=== PATIENT | female | born 1930 | race Caucasian/White ===

== ENCOUNTER 2018-04-18 14:17 | Inpatient (IN) | payer MEDICAID, MEDICARE ==
[2018-04-18 14:36] VITALS: BMI 22.4
--- NOTE | 2018-04-18 15:00 | ED PDOC ---
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 Patient ambulates in the home without a cane or walker. Reports feeling well today, prior to fall denies dizziness, headache, CP, SOB or palpitations. Denies head injury. LOC, neck/back pain, numbness or any other injury. PMD Milan Massey Past Medical History - Infectious Disease Hx of Infectious Diseases: None - Cardiac Hx Hypertension: Yes - Endocrine/Metabolic Hx Diabetes Mellitus Type 2: Yes - Psychiatric Hx Substance Use: No - Surgical History Hx Orthopedic Surgery: Yes Other/Comment: L hip sx. R shoulder sx. Stomach sx Family/Social History Family/Social History: No Known Family HX Smoking Status: Never Smoked Hx Alcohol Use: No Hx Substance Use: No Allergies/Home Meds Allergies/Adverse Reactions: Allergies Penicillins Allergy (Verified 04/18/18 19:03) RASH Home Medications: Home Meds Medication Instructions Recorded Confirmed Ferrous Sulfate [Feosol] 325 mg PO BID 04/18/18 04/18/18 Multivit-Min/Iron/Folic Acid/K 1 each PO DAILY 04/18/18 04/18/18 [Adults Multivitamin Caplet] SITagliptin [Januvia] 25 mg PO DAILY 04/18/18 04/18/18 Review of Systems - Review of Systems Constitutional: absent: Fatigue, Weight Change, Fevers Respiratory: absent: SOB, Cough Cardiovascular: absent: Chest Pain, Palpitations Gastrointestinal: absent: Abdominal Pain, Stool Changes, Vomiting Genitourinary Female: absent: Dysuria, Frequency Musculoskeletal: Arthralgias. absent: Back Pain, Neck Pain Skin: absent: Rash, Pruritis, Skin Lesions Neurological: absent: Headache, Dizziness, Focal Weakness Physical Exam Vital Signs Temp Pulse Resp BP Pulse Ox 04/18/18 16:34 98.1 F 70 17 135/43 L 96 04/18/18 14:43 98.1 F 68 17 120/59 L 99 Temperature: Afebrile Blood Pressure: Normal Pulse: Regular Respiratory Rate: Normal Appearance: Positive for: Well-Appearing, Non-Toxic, Comfortable Pain Distress: Moderate Mental Status: Positive for: Alert and Oriented X 3 - Systems Exam Head: Present: Atraumatic, Normocephalic Pupils: Present: PERRL Extroacular Muscles: Present: EOMI Conjunctiva: Present: Normal Mouth: Present: Moist Mucous Membranes Neck: Present: Normal Range of Motion. No: MIDLINE TENDERNESS Respiratory/Chest: Present: Clear to Auscultation, Good Air Exchange. No: Respiratory Distress, Accessory Muscle Use Cardiovascular: Present: Regular Rate and Rhythm, Normal S1, S2. No: Murmurs Abdomen: No: Tenderness, Distention, Peritoneal Signs Back: Present: Normal Inspection. No: Midline Tenderness Upper Extremity: Present: Normal Inspection. No: Cyanosis, Edema Lower Extremity: Present: Normal Inspection, NORMAL PULSES, Neurovascularly Intact, Capillary Refill < 2 s, Other (R LE : leg appears short and externally rotated, +tenderness to the hip and femur with limited ROM secondary to pain). No: Edema, Temperature Abnormalties Neurological: Present: GCS=15, CN II-XII Intact, Speech Normal, Motor Func Grossly Intact, Normal Sensory Function Skin: Present: Warm, Dry, Normal Color. No: Rashes Psychiatric: Present: Alert, Oriented x 3, Normal Insight, Normal Concentration Medical Decision Making ED Course and Treatment: 04/18/18 14:57 87 yo F s/p slip and fall with R hip injury. Plan : - XR R hip and femur - Tylenol po XR R hip and femur : +fracture greater trochanter with +hip replacement on the R side noted, no dislocation, as read by MARTHA. XRs reviewed. Labs, CXR and EKG ordered. X-ray results discussed with the patient and her daughter in great detail. Case d/w Dr. Ramachandran, agrees with plan for admission. Case d/w Dr. Moffett, will admit the patient and see the patient in the ER. Labs reviewed : Hgb 8.5 (on 11/28/14 pt's hgb was 12). As per daughter the patient has a h/o anemia and takes iron pills, she does not know the patient's last hgb. Daughter is refusing a rectal exam on the patient to check for occult blood. CXR : NAD, as read by MARTHA. EKG : NSR at 65 bpm, no acute ST changes, as read by PA. - Lab Interpretations Lab Results: 04/18/18 16:34 04/18/18 16:34 Lab Results 04/18/18 16:34: Sodium 139, Potassium 4.9, Chloride 105, Carbon Dioxide 25, Anion Gap 14, BUN 22 H, Creatinine 0.9, Est GFR ( Amer) > 60, Est GFR ( Non-Af Amer) 59, Random Glucose 172 H, Calcium 9.3, Total Bilirubin 0.4, AST 37 H, ALT 27, Alkaline Phosphatase 90, Total Protein 7.0, Albumin 4.0, Globulin 3.0 , Albumin/Globulin Ratio 1.3 04/18/18 16:34: WBC 6.9 D, RBC 2.65 L, Hgb 8.5 L, Hct 26.1 L, MCV 98.5, MCH 32.1, MCHC 32.6, RDW 14.8 H, Plt Count 287, MPV 8.7, Gran % 82.1 H, Lymph % ( Auto) 6.6 L, Mcintosh % (Auto) 10.8 H, Eos % (Auto) 0.1 L, Baso % (Auto) 0.4, Gran # 5.62, Lymph # (Auto) 0.5 L, Mcintosh # (Auto) 0.7 H, Eos # (Auto) 0.0, Baso # ( Auto) 0.03 - RAD Interpretation Radiology Orders: 04/18/18 14:41 HIP MIN 2V W/ PELVIS RT [RAD] Stat 04/18/18 14:48 Femur Right [FEMUR MIN 2 VIEWS RT] [RAD] Stat 04/18/18 15:45 CHEST ONE VIEW [RAD] Stat - Medication Orders Current Medication Orders: Acetaminophen (Tylenol 325mg Tab) 650 mg PO Q4 PRN PRN Reason: Fever >100.4 F Enoxaparin Sodium (Lovenox) 30 mg SC DAILY TRACI PRN Reason: Protocol Sodium Chloride (Sodium Chloride 0.45%) 1,000 mls @ 40 mls/hr IV .Q24H TRACI Insulin Human Regular (Humulin R Med) 0 units SC ACHS TRACI PRN Reason: Protocol Last Admin: 04/18/18 21:25 Dose: Not Given Non-Admin Reason: Blood Sugar Parameter MAR Blood Glucose Document 04/18/18 21:25 MB (Rec: 04/18/18 21:25 MB [id number]) Blood Glucose Finger Stick Blood Glucose (70-120) 153 Morphine Sulfate (Morphine) 2 mg IVP Q4H PRN PRN Reason: Pain, moderate (4-7) Discontinued Medications Acetaminophen (Tylenol 325mg Tab) 650 mg PO STAT STA Stop: 04/18/18 14:43 Last Admin: 04/18/18 15:40 Dose: 650 mg MAR Pain/Vitals Document 04/18/18 15:40 OCS (Rec: 04/18/18 15:42 OCS [id number]) Pain Reassessment Is This A Pain ReAssessment? No Sleep Is patient sleeping during reassessment? No Presence of Pain Presence of Pain Yes Pain Scale Used Pain Scale Used Numeric Pneumococcal Polyvalent Vaccine (Pneumovax 23 Vaccine) 0.5 ml IM .ONCE ONE Stop: 04/18/18 21:56 - PA / MAGISTRATE ASSISTANT / Resident Statement / has reviewed & agrees with the documentation as recorded. Disposition/Present on Arrival - Present on Arrival Any Indicators Present on Arrival: No History of DVT/PE: No History of Uncontrolled Diabetes: No Urinary Catheter: No History of Decub. Ulcer: No History Surgical Site Infection Following: None - Disposition Have Diagnosis and Disposition been Completed?: Yes Diagnosis: Closed right hip fracture Disposition: HOSPITALIZED Disposition Time: 17:20 Patient Plan: Admission Condition: STABLE
--- NOTE | 2018-04-18 15:55 | RAD ---
Date of service: 04/18/2018 PROCEDURE: HISTORY: pain COMPARISON: None TECHNIQUE: AP view of the pelvis and applicable frog leg views obtained. FINDINGS: A right total hip arthroplasty is present the acetabular femoral stems appear normally aligned. There is a fracture with mild comminution involving the lateral and inferior right greater trochanter. Lateral cortical offset is most conspicuous. History states pain No history of fall provided. Atherosclerotic vascular calcifications present. . Multiple right hemipelvic phleboliths noted Marked inferior lumbosacral spondylosis with intervening disc space narrowing there is also crease height of multiple inferior lumbar vertebrae chronicity of these mild compression deformities of lumbar vertebrae are unknown. There is sclerotic changes along the left medial pubic ring bordering the symphysis pubis prior fracture here probably subacute to chronic compatible with this. Correlation with clinical history needed. Left hip joint space narrowing and acetabular spurring compatible with left hip arthrosis as well. Transitional elements suggested at the lumbosacral junction. IMPRESSION: Right total hip arthroplasty with the prosthesis appears intact. There is fracture the lateral inferior right greater trochanter - assumed as acute or subacute no prior studies are available. The sclerotic changes of the medial left tibia parasymphyseal fracture and/or prior left pubic symphyseal diastases with fracture connoting an element of chronicity. . Here the inferior left pubic ring ischial tuberosity is deformed compatible with a healed old fracture here. Comments: Findings called in to the ER in given to Ted Mckeon at approximately 3:53 p.m. on 04/18/2018
--- NOTE | 2018-04-18 15:56 | RAD ---
Date of service: 04/18/2018 PROCEDURE: HISTORY: pain COMPARISON: None TECHNIQUE: Two-view FINDINGS: A centered right proximal femoral intramedullary meenakshi is partially visualized. Atherosclerotic vascular calcifications present. . Osteopenia and tricompartmental osteoarthrosis - knee Patient's same-day right hip exam shows a right lateral greater trochanter bordering fracture IMPRESSION: Patient's same-day right hip exam shows a right lateral greater trochanter bordering fracture please note that report No more distal femoral fractures noted Advanced right knee arthrosis
--- NOTE | 2018-04-18 16:16 | RAD ---
Date of service: 04/18/2018 PROCEDURE: CHEST RADIOGRAPH, 1 VIEW HISTORY: pre-admission COMPARISON: None available. FINDINGS: LUNGS: Clear. PLEURA: No pneumothorax or pleural fluid seen. CARDIOVASCULAR: Minimal cardiomegaly. Tortuous and calcified thoracic aorta. OSSEOUS STRUCTURES: Thoraco lumbar spondylosis, multi level diffuse mild wedging deformities. Partially visualized right hip prosthetic VISUALIZED UPPER ABDOMEN: Normal. OTHER FINDINGS: None. IMPRESSION: No acute pulmonary pathology. Other findings -as above.
[2018-04-18 16:51] LABS: BASO # 0.03 K/mm3 (0.0-2.0); BASO % 0.4 % (0.0-3.0); EOS % 0.1 % (1.5-5.0); GRAN # 5.62 (1.4-6.5); GRAN % 82.1 % (50.0-68.0); HEMOGLOBIN 8.5 g/dL (12.0-16.0); LYMPH # 0.5 (1.2-3.4); LYMPH % 6.6 % (22.0-35.0); MEAN CELL VOLUME 98.5 fl (80.0-105.0); MEAN CORPUSCULAR HEMOGLOBIN 32.1 pg (25.0-35.0); MEAN CORPUSCULAR HGB CONC 32.6 g/dl (31.0-37.0); MEAN PLATELET VOLUME 8.7 fl (7.0-11.0); MONO # 0.7 (0.1-0.6); MONO % 10.8 % (1.0-6.0); RBC 2.65 10^6/uL (3.5-6.1); RED CELL DISTRIBUTION WIDTH 14.8 % (11.5-14.5); WHITE BLOOD COUNT 6.9 10^3/ul (4.5-11.0)
[2018-04-18 16:57] LABS: ALB/GLOB RATIO 1.3 (1.1-1.8); ALT/SGPT 27 U/L (7-56); AST/SGOT 37 U/L (14-36); BLOOD UREA NITROGEN 22 mg/dL (7-21); CALCIUM 9.3 mg/dL (8.4-10.5); GFR AFRICAN-AMERICAN > 60; GFR NON-AFRICAN AMERICAN 59
[2018-04-18 17:59] LABS: PROTHROMBIN TIME 11.4 SECONDS (9.4-12.5)
[2018-04-18] MEDS ORDERED: Morphine 2 mg/2 mL syringe IVP PRN (18:57)
[2018-04-18] MEDS ORDERED: Morphine 2 mg/ml ISec IVP PRN (18:59)
[2018-04-18] MEDS: Insulin Reg-MEDIUM-Coverage SC SCH (21:25)
[2018-04-18] MEDS ORDERED: Pneumococcal 23-Valent Vaccine IM ONE (21:55)
[2018-04-19] MEDS: Sodium Chloride 0.45% 1,000 ML IV SCH ×2 (00:47→20:22)
--- NOTE | 2018-04-19 01:23 | HP ---
Copied To: Jerson Moffett DO Attending MD: Jerson Moffett DO. HISTORY OF PRESENT ILLNESS: I was called to the emergency room to evaluate Katiana. She is an 87-year-old white female, who had a fall at home, has right hip and thigh pain. She usually ambulates in the home without a cane or a walker. She was feeling well prior to the fall. No head injury and now she cannot put weight on it. It is very painful. PAST MEDICAL HISTORY: She has a history of hypertension and diabetes. PAST SURGICAL HISTORY: She has had a surgical history of left hip surgery, right shoulder surgery, stomach surgery. FAMILY HISTORY: No known family history. SOCIAL HISTORY: Never smoked. No alcohol. No drugs. ALLERGIES: TO PENICILLIN. REVIEW OF SYSTEMS: No weight changes or fevers. No shortness of breath or cough. No palpitations or chest pain. No abdominal pain, nausea, vomiting, constipation, diarrhea. No problems urinating. She has arthralgias, it is all about the right hip and leg. No skin issues that she knows of. No headache or dizziness. PHYSICAL EXAMINATION: VITAL SIGNS: She has a 98.1 temp, 68 pulse, 17 respiratory rate, 120/59 blood pressure, 99% O2 sat on room air. GENERAL: She is well appearing, comfortable at rest. Alert and oriented x3. Moderate distress if she moves. HEENT: Head is atraumatic, normocephalic. Extraocular muscles are intact. Pupils equal, reactive to light and accommodation. Throat is moist. NECK: Supple. HEART: Regular rate. Normal S1 and S2. LUNGS: Clear to auscultation bilaterally with poor inspiration, but clear to auscultation. No wheezes. No rhonchi. No rales. ABDOMEN: Soft, nontender. Positive bowel sounds. No guarding. No rebound. No CVA tenderness. EXTREMITIES: Right leg is short and externally rotated. It is tender to gentle palpation of the right thigh and femur area. Upper extremities are okay. NEUROLOGIC: GCS is 15. Cranial nerves II through XII grossly intact. Speech is normal. Alert and oriented x3. SKIN: Warm and dry. No apparent rashes or ulcers. LYMPHATICS: Thyroid midline. No palpable lymphadenopathy. LABORATORY DATA: There is a fracture of greater trochanter on x-ray. She has a 6.9 white count, 8.5 hemoglobin, 26.1 hematocrit with 287 platelets. A 139 sodium, potassium 4.9, chloride is 105, carbon dioxide is 25, anion gap is 14, BUN 22, creatinine 0.9. GFR is greater than 60, sugar is 172, calcium is 9.3, total bili is 0.4, AST is 37, ALT is 27, alk phos is 90, total protein 7, albumin is 4, globulin 3. IMPRESSION: I do not have a list of medications here in the chart. She is here for a fall, right hip fracture, anemia, hypertension, diabetes. We will put her on coverage, morphine, Tylenol, IV fluids, orthopedic evaluation. She will need to go to subacute rehabilitation in 3 days and hopefully she will improve. She will also get some Lovenox to prevent issues. Jerson Moffett DO
--- NOTE | 2018-04-19 06:57 | CARD ---
APPROVED REPORT Date of service: 04/18/2018 EKG Measurement Heart [id number] <Conclusion> Normal sinus rhythm Possible Left atrial enlargement Nonspecific T wave abnormality Abnormal ECG
[2018-04-19 07:47] LABS: HEMOGLOBIN 8.1 g/dL (12.0-16.0); MEAN CELL VOLUME 97.7 fl (80.0-105.0); MEAN CORPUSCULAR HEMOGLOBIN 31.6 pg (25.0-35.0); MEAN CORPUSCULAR HGB CONC 32.4 g/dl (31.0-37.0); MEAN PLATELET VOLUME 8.9 fl (7.0-11.0); RBC 2.56 10^6/uL (3.5-6.1); RED CELL DISTRIBUTION WIDTH 14.8 % (11.5-14.5); WHITE BLOOD COUNT 4.6 10^3/ul (4.5-11.0)
[2018-04-19] MEDS: Insulin Reg-MEDIUM-Coverage SC SCH ×4 (07:49→21:27)
[2018-04-19 08:00] LABS: ALB/GLOB RATIO 1.3 (1.1-1.8); ALBUMIN 3.6 g/dL (3.0-4.8); ALT/SGPT 14 U/L (7-56); AST/SGOT 29 U/L (14-36); BLOOD UREA NITROGEN 20 mg/dL (7-21); CALCIUM 9.1 mg/dL (8.4-10.5); GFR AFRICAN-AMERICAN > 60; GFR NON-AFRICAN AMERICAN 59
[2018-04-19] MEDS: LINACLOTIDE 145 MCG PO SCH (10:32)
[2018-04-19] MEDS: Enoxaparin 30 mg Syringe SC SCH (10:32)
[2018-04-19] MEDS: cycloSPORINE 0.05 % Opth Emulsion UD OU SCH ×2 (10:33→18:02)
--- NOTE | 2018-04-19 11:56 | PN ---
Copied To: Jerson Moffett, DATE: 04/19/2018 SUBJECTIVE: She came in yesterday with a fall and a fractured right hip. She is also a diabetic with anemia and constipation. I will put her back on her regular medications. She is comfortable at rest. I believe there could not be any surgery as per Dr. Ramachandran, I got that through the ER doctor. He has not written note yet in the chart, she is on IV fluids, Feosol now, folic acid, insulin coverage, back on Januvsue, Linhallies, she has Lovenox, morphine for pain, Neurontin, Pepcid, Restasis, but she only wants Tylenol for pain. She is comfortable in bed. She is hungry. She is eating and at rest she is comfortable. PHYSICAL EXAMINATION: VITAL SIGNS: Temperature 98.3, 65 pulse, 132/58 blood pressure, 18 respiratory rate, 97% O2 sat on room air. HEENT: Head is atraumatic, normocephalic. HEART: Regular rate. LUNGS: Decreased breath sounds, but clear. ABDOMEN: Soft. EXTREMITIES: No edema. She has a right hip fracture, which no surgery what I understand. LABORATORY DATA: She has 4.6 white count, hemoglobin fell to 8.1, I put her back on iron. If it drops below 8, I will transfuse her, hematocrit is 25, platelets are 264. She has 140 sodium, potassium 4.4, BUN 20, creatinine 0.9, GFR is greater than 60, sugar is 137, calcium is 9.1, total bili is 0.5. AST is 29, ALT is 14, alk phos 75, total protein is 6.4. ASSESSMENT AND PLAN: She has a consult with Orthopedics. She have a consult with Physical Therapy. I believe she will need to go to subacute rehab, they want to go to subacute rehab near their family, so I will have case management get involved about where they want to go in 2 more days for subacute rehab. This is Dr. Moffett on Katiana Alegria with fall and fracture of the hip. Jerson Moffett DO [facility] # [id number]
--- NOTE | 2018-04-19 19:44 | CON ---
Copied To: Salvador Ramachandran DO Attending MD: Salvador Ramachandran DO DATE: 04/19/2018 ORTHOPEDIC CONSULTATION HISTORY OF PRESENT ILLNESS: She is an 87-year-old female, Came in to the hospital on 04/18/2018 in the evening with pain in the right hip because of a fall at home. No history of why she fell. X-ray shows comminuted greater trochanteric fracture, about a well-placed bipolar hip prosthesis, and she is very anemic. I feel as though myself I would treat this conservatively with rest for a day or two, and then get therapy to get her up out of bed and ambulate with a walker. Before, she did not use a walker, but that could be one of the reasons why she fell. She needs a walker to safely ambulate. The fracture will consolidate in about 4 to 6 weeks. I would only do surgery if the hip becomes unstable. It is well fixed and should not dislocate that the fracture should go on to unite with 4 to 6 weeks of healing and scar tissue formation. Right now, we will have to get her out of bed once her pain subsides in a day or two, and consider subacute rehab if the family wishes, but there is a chance they might want to go to [place] where the majority of the family lives. FINAL DIAGNOSES: Stable right trochanteric fracture, not involving the hip joint and a well-placed right hip prosthesis. My feeling is that the patient do well with conservative therapy with resting with fracture consolidate and ambulate with a walker, and should not be able to live alone and that is the other problem. She should have family support at this time. Salvador Ramachandran DO
[2018-04-20 06:53] LABS: MEAN CELL VOLUME 91.2 fl (80.0-105.0); MEAN PLATELET VOLUME 9.5 fl (7.0-11.0); RBC 3.52 10^6/uL (3.5-6.1); RED CELL DISTRIBUTION WIDTH 17.5 % (11.5-14.5); WHITE BLOOD COUNT 6.5 10^3/ul (4.5-11.0)
[2018-04-20 07:12] LABS: HEMOGLOBIN 10.9 g/dL (12.0-16.0)
[2018-04-20 07:21] VITALS: RESP 16
[2018-04-20] MEDS: Insulin Reg-MEDIUM-Coverage SC SCH ×3 (07:21→16:37)
[2018-04-20 07:23] LABS: ALB/GLOB RATIO 1.2 (1.1-1.8); ALBUMIN 3.6 g/dL (3.0-4.8); ALT/SGPT 27 U/L (7-56); AST/SGOT 32 U/L (14-36); BLOOD UREA NITROGEN 18 mg/dL (7-21); CALCIUM 8.8 mg/dL (8.4-10.5); GFR AFRICAN-AMERICAN > 60; GFR NON-AFRICAN AMERICAN 59
--- NOTE | 2018-04-20 09:38 | PN ---
Copied To: Jerson Moffett DO Attending MD: Jerosn Moffett DO DATE: 04/20/2018 SUBJECTIVE: I saw her resting comfortably in bed. A little bit of pain, but not bad. She is on Feosol, folic acid, insulin, Januvia, Lovenox, morphine, Neurontin, Pepcid, Restasis, IV fluids and Tylenol. OBJECTIVE: VITAL SIGNS: Temperature 98.1, 58 pulse, 162/57 blood pressure, 16 respiratory rate, 97% O2 sat on room air. HEENT: Head is atraumatic, normocephalic. HEART: Regular rate. LUNGS: Decreased breath sounds, but clear. ABDOMEN: Soft. EXTREMITIES: They are trying not to move the legs. She has a right hip fracture. She has diabetes and anemia. She has a 6.5 white count; 10.9 hemoglobin after transfusion, 32.1 hematocrit with 254 platelets. She has a 138 sodium, potassium 3.8, BUN , creatinine 0.9. GFR is greater than 60. Last blood sugar was 111, calcium is 8.8, total bili is 1, AST is 32, ALT is 27, alkaline phosphatase 66, total protein 6.6, albumin is 3.6. She has been seen by Orthopedics. She has a stable right trochanteric fracture, not involving the hip and we will place right hip prosthesis, conservative therapy, resting the fracture, cannot leave alone and no surgery at this time and hopefully tomorrow with third overnight, we can get her subacute rehab. The patient is here for a fall and right hip fracture. We will check her labs tomorrow. Jerson Moffett DO MTDD
[2018-04-20] MEDS: Enoxaparin 30 mg Syringe SC SCH (09:39)
[2018-04-20] MEDS: LINACLOTIDE 145 MCG PO SCH (09:40)
[2018-04-20] MEDS: cycloSPORINE 0.05 % Opth Emulsion UD OU SCH ×2 (09:49→17:20)
[2018-04-20 15:03] VITALS: BP 137/51; PULSE 66; TEMP 97.8; O2SAT 95
== END 2018-04-20 20:48 | DRG 236 ==
LOC: ED 14:17 → ERH 17:21 → 5RNO 19:48
PROVIDERS: ADMIT Family Medicine; ATTEND Family Medicine
PROC: 30233N1 Transfusion of Nonautologous Red Blood Cells into Peripheral Vein, Percutaneous Approach (ICD-10-PCS; principal; 2018-04-19)
DX: S72.111A Displaced fracture of greater trochanter of right femur, initial encounter for closed fracture (principal); W01.0XXA Fall on same level from slipping, tripping and stumbling without subsequent striking against object, initial encounter; Y92.009 Unspecified place in unspecified non-institutional (private) residence as the place of occurrence of the external cause; I10 Essential (primary) hypertension; E11.9 Type 2 diabetes mellitus without complications; D64.9 Anemia, unspecified; K59.00 Constipation, unspecified

== ENCOUNTER 2018-08-25 13:22 | Emergency (ER) | payer MEDICARE, MEDICAID ==
[2018-08-25 13:23] VITALS: BMI 22.4
[2018-08-25] MEDS ORDERED: Sodium Chloride 0.9% 1,000 ML IV STA (13:45)
[2018-08-25 14:13] VITALS: RESP 18; TEMP 98
--- NOTE | 2018-08-25 14:18 | CT ---
Date of service: 08/25/2018 PROCEDURE: CT HEAD WITHOUT CONTRAST. HISTORY: headache COMPARISON: None available. TECHNIQUE: Axial computed tomography images were obtained through the head/brain without intravenous contrast. Radiation dose: Total exam DLP = 776.35 mGy-cm. This CT exam was performed using one or more of the following dose reduction techniques: Automated exposure control, adjustment of the mA and/or kV according to patient size, and/or use of iterative reconstruction technique. FINDINGS: HEMORRHAGE: No intracranial hemorrhage. BRAIN: No mass effect or edema. There is moderate atrophy. There are no acute findings VENTRICLES: Unremarkable. No hydrocephalus. CALVARIUM: Unremarkable. PARANASAL SINUSES: Unremarkable as visualized. No significant inflammatory changes. MASTOID AIR CELLS: Left-sided mastoiditis and otitis media OTHER FINDINGS: None. IMPRESSION: No acute intracranial findings Left-sided mastoiditis and otitis media
--- NOTE | 2018-08-25 14:22 | ED PDOC ---
Arrival/HPI - General Chief Complaint: Headache Historian: Patient, Family (daughters) - History of Present Illness Narrative History of Present Illness (Text): 08/25/18 14:20 A 88 y/o F presents to the emergency department complaining of headache for the last 10 days. Patient's daughter reports patient has been having pressure like sensation in her head and has taken Tylenol intermittently for the pain. Patient denies any vision changes, fever, chills, shortness of breath, chest pain, diarrhea, nausea, vomiting, urinary symptoms, back pain, neck pain, dizziness, or any other complaints. PMD: Dr. Kim Time/Duration: Other (10 days) Symptom Onset: Gradual Symptom Course: Unchanged Activities at Onset: Light Context: Home Past Medical History - Provider Review Nursing Documentation Reviewed: Yes - Infectious Disease Hx of Infectious Diseases: None - Cardiac Hx Cardiac Disorders: Yes Hx Hypertension: Yes - Pulmonary Hx Respiratory Disorders: No - Neurological Hx Neurological Disorder: No - HEENT Hx HEENT Disorder: Yes (WEARS RX GLASSES) - Renal Hx Renal Disorder: No - Endocrine/Metabolic Hx Endocrine Disorders: Yes Hx Diabetes Mellitus Type 2: Yes - Hematological/Oncological Hx Blood Disorders: Yes Hx Anemia: Yes - Integumentary Hx Dermatological Disorder: No - Musculoskeletal/Rheumatological Hx Musculoskeletal Disorders: Yes Hx Degenerative Joint Disease: Yes Hx Falls: Yes (FELL TODAY 04-18-18) Hx Fractures: Yes (RIGHT HIP FRACTURE 04-18-18,RIGHT HIP REPLACEMENT W/PIN,) Hx Unsteady Gait: Yes - Gastrointestinal Hx Gastrointestinal Disorders: Yes (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 R shoulder sx. Stomach sx Family/Social History - Physician Review Nursing Documentation Reviewed: Yes Family/Social History: No Known Family HX Smoking Status: Never Smoked Hx Alcohol Use: No Hx Substance Use: No Allergies/Home Meds Allergies/Adverse Reactions: Allergies Penicillins Allergy (Verified 08/25/18 13:36) RASH Home Medications: Home Meds Medication Instructions Recorded Confirmed Celecoxib [Celebrex] 200 mg PO DAILY 04/18/18 04/18/18 Famotidine [Pepcid] 20 mg PO DAILY 04/18/18 04/18/18 Ferrous Sulfate [Feosol] 650 mg PO BID 04/18/18 04/18/18 Folic Acid 1 mg PO DAILY 04/18/18 04/18/18 Gabapentin [Neurontin] 100 mg PO DAILY 04/18/18 04/18/18 Linaclotide [Linzess] 145 mcg PO DAILY 04/18/18 04/18/18 Multivit-Min/Iron/Folic Acid/K 1 each PO DAILY 04/18/18 04/18/18 [Adults Multivitamin Caplet] [place]-3/Dha/Epa/Lut/Zeaxanthin 1 each PO DAILY 04/18/18 04/18/18 [[facility] Softgel] SITagliptin [Januvia] 100 mg PO DAILY 04/18/18 04/18/18 cycloSPORINE [Restasis] 1 drop OU BID 04/18/18 04/18/18 Review of Systems - Physician Review All systems were reviewed & negative as marked: Yes - Review of Systems Constitutional: absent: Fevers, Night Sweats Eyes: absent: Vision Changes Respiratory: absent: SOB Cardiovascular: absent: Chest Pain Gastrointestinal: absent: Diarrhea, Nausea, Vomiting Genitourinary Female: absent: Urine Output Changes Musculoskeletal: absent: Back Pain, Neck Pain Neurological: Headache. absent: Dizziness Physical Exam Vital Signs Reviewed: Yes Vital Signs Temp Pulse Resp BP Pulse Ox 08/25/18 13:23 98 F 76 18 148/65 98 Temperature: Afebrile Blood Pressure: Normal Pulse: Regular Respiratory Rate: Normal Appearance: Positive for: Well-Appearing, Non-Toxic, Comfortable Finger Stick Blood Glucose: 141 - Systems Exam Head: Present: Atraumatic, Normocephalic Pupils: Present: PERRL Extroacular Muscles: Present: EOMI Conjunctiva: Present: Normal Mouth: Present: Moist Mucous Membranes Neck: Present: Normal Range of Motion Respiratory/Chest: Present: Clear to Auscultation, Good Air Exchange. No: Respiratory Distress, Accessory Muscle Use Cardiovascular: Present: Regular Rate and Rhythm, Normal S1, S2. No: Murmurs Abdomen: No: Tenderness, Distention, Peritoneal Signs Lower Extremity: Present: Normal Inspection. No: Edema Neurological: Present: GCS=15, CN II-XII Intact, Speech Normal, Motor Func Grossly Intact, Normal Sensory Function, Other (no facial assymetry) Skin: Present: Warm, Dry, Normal Color. No: Rashes Psychiatric: Present: Alert, Oriented x 3, Normal Insight, Normal Concentration Medical Decision Making ED Course and Treatment: 08/25/18 14:24 Impression: A 88 y/o F presents to the emergency department complaining of headache. Differential Diagnosis included but are not limited to: --Tension headache --Mastoiditis --Subarachnoid hemorrhage --Otitis media Plan: -- Labs -- CT Head without contrast -- CBC -- Clindamycin -- Reglan -- IV fluids -- Reassess and disposition Prior Visits: Notes and results from previous visits were reviewed. Progress Notes: 08/25/18 15:53 Labs reviewed with no leukocytosis noted. CT imaging reveals left sided otitis media and mastoiditis. Patient and family updated on results and will follow up with ENT & neurology. Clindamycin given. Encouragement to continue conservative management as well as monitoring for any worrisome symptoms that would prompt return to the ED. They demonstrate understanding and will follow up. She is stable for discharge. - RAD Interpretation Narrative RAD Interpretations (Text): 08/25/18 14:20 Procedure: CT Head without contrast Impression: No acute intracranial findings. Left-sided mastoiditis and otitis media. Dictator: Salvador Wynn MD Radiology Orders: 08/25/18 13:44 HEAD W/O CONTRAST [CT] Stat Nutritional Yeast Supervisor: Radiologist - Medication Orders Current Medication Orders: Sodium Chloride (Sodium Chloride 0.9%) 1,000 mls @ 999 mls/hr IV .Q1H1M STA Stop: 08/25/18 14:45 Discontinued Medications Metoclopramide HCl (Reglan) 10 mg IVP STAT STA Stop: 08/25/18 13:46 - Scribe Statement The provider has reviewed the documentation as recorded by the Lisa Dill All medical record entries made by the Lisa were at my direction and personally dictated by me. I have reviewed the chart and agree that the record accurately reflects my personal performance of the history, physical exam, medical decision making, and the department course for this patient. I have also personally directed, reviewed, and agree with the discharge instructions and disposition. Disposition/Present on Arrival - Present on Arrival Any Indicators Present on Arrival: No History of DVT/PE: No History of Uncontrolled Diabetes: No Urinary Catheter: No History of Decub. Ulcer: No History Surgical Site Infection Following: None - Disposition Have Diagnosis and Disposition been Completed?: Yes Diagnosis: Otitis media, Mastoiditis Disposition: HOME/ ROUTINE Disposition Time: 15:15 Patient Plan: Discharge Patient Problems: Current Active Problems Problem Status Onset Otitis media Acute Mastoiditis Acute Condition: IMPROVED Discharge Instructions (ExitCare): Ear Infections (Otitis Media) (DC), Mastoiditis (DC) Print Language: SWAZI Additional Instructions: All medical record entries made by the Scribe were at my direction and personally dictated by me. I have reviewed the chart and agree that the record accurately reflects my personal performance of the history, physical exam, medical decision making, and the department course for this patient. I have also personally directed, reviewed, and agree with the discharge instructions and disposition. Prescriptions: Clindamycin [Cleocin] 300 mg PO TID 10 Days #30 cap Referrals: Augusto Rubalcava DO [Staff Provider] - Follow up with primary Mackenzie Black MD [Staff Provider] - Follow up with primary Forms: Hatsize (Surinamese)
[2018-08-25 14:41] LABS: BASO # 0.05 K/mm3 (0.0-2.0); BASO % 1.4 % (0.0-3.0); EOS # 0.1 (0.0-0.7); EOS % 3.2 % (1.5-5.0); GRAN # 1.96 (1.4-6.5); GRAN % 52.9 % (50.0-68.0); LYMPH # 1.1 (1.2-3.4); LYMPH % 29.5 % (22.0-35.0); MEAN CELL VOLUME 100.3 fl (80.0-105.0); MEAN CORPUSCULAR HGB CONC 32.9 g/dl (31.0-37.0); MEAN PLATELET VOLUME 8.9 fl (7.0-11.0); MONO # 0.5 (0.1-0.6); RBC 3.33 10^6/uL (3.5-6.1); RED CELL DISTRIBUTION WIDTH 15.2 % (11.5-14.5); WHITE BLOOD COUNT 3.7 10^3/uL (4.5-11.0)
[2018-08-25 14:51] LABS: ALB/GLOB RATIO 1.2 (1.1-1.8); ALBUMIN 4.2 g/dL (3.0-4.8); BLOOD UREA NITROGEN 26 mg/dL (7-21); CALCIUM 9.5 mg/dL (8.4-10.5); GFR NON-AFRICAN AMERICAN 59; INR 0.95; PARTIAL THROMBOPLASTIN TIME 29.6 Seconds (25.1-36.5); PROTHROMBIN TIME 10.9 SECONDS (9.4-12.5)
[2018-08-25 14:52] LABS: ALT/SGPT 17 U/L (7-56); AST/SGOT 31 U/L (14-36)
[2018-08-25 15:01] LABS: TROPONIN I < 0.01 ng/mL
[2018-08-25] MEDS ORDERED: Clindamycin in D5W 300 MG/50 ML BAG IV STA (15:12)
[2018-08-25 17:37] VITALS: BP 142/64; PULSE 65; O2SAT 100
== END 2018-08-25 17:36 | disposition home or self-care (01) ==
LOC: ED 13:22
DX: H70.92 Unspecified mastoiditis, left ear (principal); H66.92 Otitis media, unspecified, left ear; I10 Essential (primary) hypertension; E11.9 Type 2 diabetes mellitus without complications
CPT/HCPCS: 70450; 80053; 84484; 85025; 85610; 85730; 96361; 96365; 96375; 99285; J2765; J7030